=== PATIENT | male | born 1950 | race Caucasian/White ===

== ENCOUNTER → 2019-05-02 14:42 | Outpatient (CLI) | payer MEDICARE, SELFPAY ==
--- NOTE | 2019-05-02 14:48 | CT_ITS ---
STUDY: CT ABDOMEN AND PELVIS WITH AND WITHOUT CONTRAST REASON FOR EXAM: Male, 68 years old. Microhematuria. Recent painful urination. RADIATION DOSAGE (If Supplied By Facility): CTDIvol = ( 17.01 ) mGy, DLP = ( 1539.39 ) mGycm TECHNIQUE: Transaxial images were obtained from the dome of the diaphragm to the symphysis pubis without oral contrast. 100ML IV Isovue 300 was administered. Sagittal and coronal images were reconstructed. Individualized dose optimization techniques were used for this CT. COMPARISON: None. FINDINGS: The visualized lung bases are unremarkable. Normal heart size. There is atherosclerotic calcification in the right coronary artery. There is decreased attenuation of the liver consistent with steatosis. Right lobe of the is 18.6 mm in height. The patent portal vein diameter is 14 mm. Normal gallbladder and extrahepatic biliary system. The common bile duct diameter which is 6.7 mm. Normal spleen. Normal pancreas. Normal bilateral adrenal glands. Normal right kidney. Normal left kidney. No hydronephrosis. Normal visualized stomach. Normal small intestine. Normal colon. The appendix is visualized and appears normal. There is mild to moderate atherosclerotic calcification of the abdominal aorta and proximal iliac arteries, without a demonstrated aneurysm. Normal inferior vena cava. Normal retroperitoneum. There is fairly uniform 5 mm mural thickening of the incompletely distended urinary bladder. Normal visualized prostate gland. Normal abdominal wall. There are degenerative changes with anterior endplate spondylosis in the lower thoracic and lower lumbar spine. Mild to moderate anterior wedging of the T11 vertebra. Degenerative bony bridging noted across the anterior sacroiliac joints. CT/CT Abd/Pelvis W/WO Contrast IMPRESSION: 1. Mild uniform thickening of the urinary bladder wall, which could reflect hypertrophy due to a degree of outflow obstruction versus change of chronic cystitis. Evaluation limited by incomplete distention, but there is no surrounding inflammatory change to suggest acute cystitis. No hydronephrosis. 2. Hepatic steatosis with borderline to mild hepatomegaly. 3. Atherosclerotic vascular calcifications. No demonstrated aortic aneurysm. 4. Mild to moderate anterior wedging of the T11 vertebra, age uncertain. Degenerative changes also noted in the spine and sacroiliac joints. Electronically Signed: Ethan Champion MD at 16:24 EDT , Service support ,
[2019-05-02 15:06] LABS: EGFR FINGERSTICK > 60.0000 mL/min (>60)
== END ==
DX: R31.29 Other microscopic hematuria (principal)
CPT/HCPCS: 74178; Q9967

== ENCOUNTER 2019-10-24 19:29 | Observation (INO) | payer MEDICARE, SELFPAY ==
[2019-10-24 19:29] VITALS: BP 125/75; PULSE 60; RESP 18; TEMP 36.3; O2SAT 95; BMI 25.1
--- NOTE | 2019-10-24 19:33 | ED.RN ---
CALLED FOR EKG PER RN REQUEST, NO OLD EKGS IN MUSE
--- NOTE | 2019-10-24 19:37 | EKG12_ITS ---
Test Reason : SYNCOPE Blood Pressure : / mmHG Vent. Rate : 062 BPM Atrial Rate : 062 BPM P-R Int : 184 ms QRS Dur : 080 ms QT Int : 404 ms P-R-T Axes : 074 -19 057 degrees QTc Int : 410 ms Normal sinus rhythm Normal ECG Confirmed by TAMEKA GARCÍA ([id number]), fan mail editor NENA DIAS ([id number]) on 10/26/2019 8:32:52 AM Referred By: DANTE Confirmed By:TAMEKA GARCÍA
[2019-10-24 19:54] VITALS: BP 118/79; PULSE 63; RESP 16; O2SAT 97
[2019-10-24] MEDS: 0.9% Normal Saline 1,000 ML 150 ML IV (20:00)
[2019-10-24 20:25] LABS: Bedside Glucose 146 mg/dL (70-110)
--- NOTE | 2019-10-24 20:32 | RAD_ITS ---
STUDY: X-RAY CHEST REASON FOR EXAM: Male, 69 years old. SYNCOPE TECHNIQUE: Single frontal view of the chest. COMPARISON: 10/17/2014. FINDINGS: Cardiac silhouette unremarkable. Pulmonary vascularity unremarkable. Aorta unremarkable. No focal airspace opacities. No pleural effusions. Upper abdomen unremarkable. Osseous structures intact. No pneumothorax. RAD/Chest 1 View (Portable) IMPRESSION: No acute cardiopulmonary findings Electronically Signed: Trey Angulo, at 21:40 EST Tel , Service support ,
[2019-10-24 20:41] LABS: Absolute Lymphocyte Count 1.19 X10^3/uL (0.83-4.51); Absolute Neutrophil Count 8.5 X10^3/uL (2.0-7.7); Basophil# 0.09 X10^3/uL; Basophil% 0.8 % (0-1); Eosinophil# 0.05 X10^3/uL; Eosinophils% 0.5 % (0-5); Hematocrit 45.3 % (40-54); Lymphocyte # 1.19 X10^3/ul (4.0); Lymphocyte % 10.9 % (19-41); Mean Corp Hgb Conc 33.1 g/dL (32-36); Mean Corpuscular Hgb 33.4 pg (27.0-32.0); Mean Corpuscular Volume 100.9 fL (80-94); Mean Platelet Vol. 9.2 fl (6.2-12.0); Monocyte# 1.04 X10^3/uL; Monocyte% 9.5 % (0-10); NRBC Flagged by Analyzer 0 % (0-5); Neutrophil # 8.52 X10^3/uL (2.7-7.7); Neutrophil % 77.8 % (47-70); Platelet Count 244 K/mm3 (150-450); RBC Distribution Width SD 52.6 fl (35.1-43.9); Red Blood Count 4.49 M/mm3 (4.6-6.2)
[2019-10-24 20:59] LABS: Anion Gap 5 (5-15); BUN 12 mg/dL (7-18); BUN/Creat Ratio 11.3 RATIO (10-20); Calcium,Total 8.7 mg/dL (8.5-10.1); Chloride 105 mmol/L (98-107); Creatinine, Serum 1.06 mg/dL (0.70-1.30); EST Glomerular Filtration Rate 74 mL/min (>60); Est Glom Filt Rate - Afr Amer 89 mL/min (>60); Estimated Creatinine Clearance 65.77 ml/min; Glucose 137 mg/dL (74-106); Sodium Level 139 mmol/L (136-145)
--- NOTE | 2019-10-24 22:17 | HP.PCM_ITS ---
Problem List (1) Syncope Status: Acute History of Present Illness Date of Admission: 10/24/19 Chief Complaint: SYNCOPE The patient is a 69 year old M with a significant history of cardiac arrest while in [place] status post stent Tobacco abuse and COPD who presented to the emergency department with a syncopal episode. Patient was at a restaurant. While drinking his second bottle of beer he began to shakes and twitches. He almost fell but was held to the floor by people. He lost consciousness. He reports episodes of presyncope and dizziness while on Symbicort for which reason he stopped Symbicort. Past Medical History Medical History: Medical History (Last Updated 10/25/19 @ 00:43 by Maxim Mahan MD) Hypothyroidism E03.9 Hypertension I10 Allergies BEE STINGS Allergy (Unknown, Uncoded 10/19/14 13:37) Hives Home Medications: Ambulatory Orders Medication Instructions Recorded Aspirin [Aspirin, Baby] 81 mg PO DAILY@0800 10/19/14 Levothyroxine [Synthroid] 88 mcg PO DAILY 10/19/14 Lisinopril/Hydrochlorothiazide 1 tablet PO DAILY 10/19/14 [Zestoretic 20/12.5 Tablet] Metoprolol(XL)Succ [Toprol Xl 25 mg PO DAILY 10/19/14 (Beta Jairon)] Surgical History: - - Coronary stents Lives: Spouse/ Significant Other Smoking Status: Current every day smoker Tobacco Use: Cigarettes Alcohol: Heavy - *Family History Maternal History Items: - - Denies any maternal medical history Paternal History Items: Heart Disease Review of Systems Constitutional: Denies: Chills, Fever, Weight Change HEENT: Denies: Head Aches, Sinus Congestion, Sinus Drainage Cardiovascular: Reports: Syncope. Denies: Chest Pain, Palpitations Respiratory: Denies: Cough, Shortness of breath at rest, Sputum production Gastrointestinal: Denies: Abdominal Pain, Nausea, Vomiting Genitourinary: Denies: Dysuria Musculoskeletal: Denies: Joint Pain, Joint Tenderness Skin: Denies: Rash, Wounds Neurological: Denies: Numbness, Tingling, Focal weakness Psychiatric: Denies: Anxiety, Depression, Homicidal Ideations, Suicidal Ideations Hematologic/ Lymphatic: Denies: Easy Bruising, Easy Bleeding VTE Information - Inpt Only VTE Present on Admission: No VTE Mechan Device Prophylaxis: None VTE Pharm Prophylaxis ordered?: Yes Patient Problems: Active and Suspected Problems (Last Updated 10/25/19 @ 00:43 by Maxim Mahan MD) Syncope (Acute) - Physical Exam Vitals/I&O's: Vital Signs Temp Pulse Resp BP Pulse Ox 97.4 F L 63 16 118/79 97 10/24/19 19:29 10/24/19 19:54 10/24/19 19:54 10/24/19 19:54 10/24/19 19:54 Oxygen Delivery Method Room Air Weight: 77.1 kg Body Mass Index (BMI) 25.1 Finger Stick Blood Glucose 146 General: Alert, Oriented x3, Cooperative HEENT: Atraumatic, PERRLA, EOMI, Normocephalic Neck: Supple, No JVD, Negative Carotid Bruits Lungs: No rales, Wheezes Cardiovascular: Regular rate, Normal S1, Normal S2, No murmurs Abdomen: Bowel Sounds Present, Soft, Non Tender Extremities: No edema, Capillary Refill Less than 3 Seconds Skin: No rashes, No breakdown Musculoskeletal: No Tenderness to Palpation of Joints or Extremities Neurological: Cranial nerves II-XII grossly intact Psych/Mental Status: Normal Affect, Appropriate Laboratory Results 10/24/19 20:21: POC Glucose 146 H 10/24/19 20:34: WBC 11.0, RBC 4.49 L, Hgb 15.0, Hct 45.3, MCV 100.9 H, MCH 33.4 H, MCHC 33.1, RDW Std Deviation 52.6 H, RDW Coeff of Zarina 14.0, Plt Count 244, MPV 9.2, Immature Gran % (Auto) 0.500, Neut % (Auto) 77.8 H, Lymph % (Auto) 10.9 L, Atlantic % (Auto) 9.5, Eos % (Auto) 0.5, Baso % (Auto) 0.8, Absolute Neuts (auto) 8.5 H, Absolute Lymphs (auto) 1.19, Nucleated RBC % 0 10/24/19 20:34: Sodium 139, Potassium 4.0, Chloride 105, Carbon Dioxide 29.0, Anion Gap 5, BUN 12, Creatinine 1.06, Estim Creat Clear Calc 65.77, Est GFR (MDRD) Af Amer 89, Est GFR (MDRD) Non-Af 74, BUN/Creatinine Ratio 11.3, Glucose 137 H, Calcium 8.7, Troponin I < 0.015 10/24/19 22:10: Ethyl Alcohol Pending Current Medications Sodium Chloride () 1,000 mls @ 150 mls/hr IV .[id number] [facility] Last Admin: 10/24/19 20:00 Dose: 150 mls/hr Documented by: Assessment/Plan All Active Problems (Last Updated 10/25/19 @ 00:43 by Maxim Mahan MD) Syncope (Acute) The patient is a 69 year old M with a significant history of cardiac arrest while in [place] status post stent Tobacco abuse and COPD who presented to the emergency department with a syncopal episode. Syncope Etiology unclear at this time. EKG is unremarkable. Will check orthostatic blood pressures. Started on IV fluids in the emergency department. Continue patient on IV fluids. We will get an echocardiogram and an EEG. We will get a prolactin level. Tobacco abuse Counseled COPD With some mild wheezes. Because of his history of presyncope and dizziness with Symbicort would hold off inhalers at this time. Alcohol abuse Patient drinks 3-4 beers per day. Will put on CIWA protocol with multivitamin; thiamine and Ativan as needed. Counselled Hypertension On presentation blood pressure was not within goal. Lisinopril and hydrochlorothiazide continued. Metoprolol continued. Trend blood pressure and adjust blood pressure medications if necessary. DVT prophylaxis Subcutaneous Lovenox. Code Visit OBSV E&M: 19932 Initial observation care L3
--- NOTE | 2019-10-24 22:21 | ED.VISSUMM ---
- ER Visit Summary Date of Service: 10/24/19 Chief Complaint: [Syncope History of Present Illness: The patient is a 69 M [presents to the emergency department with a syncopal episode this evening. Patient was with his at a bar. He had one beer to drink. Patient went to smoke and sip on a second beer when he started shaking and started to fall so his friends apparently caught him. Patient was unconscious. He continued to twitch for a couple of minutes. On arrival to the emergency department patient has no recollection of the event. He has no seizure history. He denies headache. He has had multiple other syncopal episodes in the past. Patient did have a cardiac arrest 4 years ago while he was in [place] and they put 2 stents in his heart that he states was preventative. He does not have a pacer or defibrillator. Patient did not bite his tongue or mouth. He did not lose control of bowel or bladder. Patient has history of COPD, hypertension, coronary artery disease, hypothyroidism, and history of cardiac arrest.] Physical Examination: [HEENT-PERRLA, EOMI. Cranial nerves II through XII grossly intact. TMs clear. Mucous membranes moist. No adenopathy. No C-spine tenderness on palpation. No external evidence of trauma to his head. Cardiovascular-regular rate and rhythm without murmur or ectopy Lungs-clear to auscultation, chest wall stable without crepitus or subcu emphysema Abdomen-normoactive bowel sounds, soft, nontender, no rebound or rigidity, no peritoneal signs. Neuro [id number]-nose and heel lim testing within normal limits, negative Romberg, negative , Fundi benign Extremities-intact ?4, normal range of motion, normal pulses, atraumatic] Test Results: [EKG obtained arrival shows sinus rhythm with a ventricular rate of 62 bpm with no acute ST segment changes. CBC with differential was normal. Chemistries unremarkable. Troponin was less than 0.015.] Chest x-ray showed nothing acute. Emergency Department Course and Treatment: [Patient had nebulized damage and was given normal saline. Alcohol level was ordered and pending.] Treatment Plan: [Admit as etiology of syncope unclear. My suspicion is that patient did not have a seizure episode but rather was twitching related to the suspected loss or lowering of the blood pressure as family states that he was quite diaphoretic.] Disposition: [Admit] Impression: [Syncope-etiology uncertain] This note was generated with [employer] dictation software. It may contain incorrect words, spelling, and punctuation that were not noted in review of the chart prior to signing ED Disposition - Plan for ED Patient: Referrals: Danish Mason MD [Primary Care Provider] -
[2019-10-24 22:32] VITALS: BP 131/90; PULSE 62; RESP 24; O2SAT 98
[2019-10-24 22:33] VITALS: BP 131/90; PULSE 73; RESP 16; O2SAT 98
[2019-10-24 22:44] LABS: Alcohol, Blood (Medical)-Serum < 3.0 mg/dL
[2019-10-24 22:55] VITALS: BP 119/77; BP 119/79; BP 134/78; PULSE 57; PULSE 60; PULSE 67
[2019-10-24 23:42] VITALS: BMI 23.8
[2019-10-24 23:50] VITALS: BMI 23.8
[2019-10-24 23:52] VITALS: PULSE 60
[2019-10-25] VITALS (13 sets, daily range): BP systolic 115–133; BP diastolic 51–85; PULSE 54–66; RESP 14–18; TEMP 36.7–36.9; O2SAT 95–97
[2019-10-25] MEDS: 0.9% Normal Saline 1,000 ML 100 ML IV ×2 (00:06→09:40)
[2019-10-25 00:13] LABS: Prolactin 12.8 ng/mL
[2019-10-25 02:49] LABS: Absolute Lymphocyte Count 1.87 X10^3/uL (0.83-4.51); Absolute Neutrophil Count 5.7 X10^3/uL (2.0-7.7); Basophil% 1.2 % (0-1); Eosinophils% 1.2 % (0-5); Hematocrit 40.8 % (40-54); Hemoglobin 13.8 g/dL (13.0-16.5); Lymphocyte # 1.87 X10^3/ul (4.0); Lymphocyte % 21.6 % (19-41); Mean Corp Hgb Conc 33.8 g/dL (32-36); Mean Corpuscular Hgb 33.6 pg (27.0-32.0); Mean Corpuscular Volume 99.3 fL (80-94); Mean Platelet Vol. 9.2 fl (6.2-12.0); Monocyte# 0.87 X10^3/uL; NRBC Flagged by Analyzer 0 % (0-5); Neutrophil % 65.7 % (47-70); Platelet Count 225 K/mm3 (150-450); RBC Distribution Width SD 51.4 fl (35.1-43.9); Red Blood Count 4.11 M/mm3 (4.6-6.2); White Blood Count 8.7 K/mm3 (4.4-11.0)
[2019-10-25 03:07] LABS: Anion Gap 5 (5-15); BUN 11 mg/dL (7-18); BUN/Creat Ratio 12.6 RATIO (10-20); Calcium,Total 8.4 mg/dL (8.5-10.1); Chloride 107 mmol/L (98-107); Creatinine, Serum 0.88 mg/dL (0.70-1.30); EST Glomerular Filtration Rate 92 mL/min (>60); Est Glom Filt Rate - Afr Amer 111 mL/min (>60); Estimated Creatinine Clearance 79.23 ml/min; Glucose 103 mg/dL (74-106); Potassium 4.2 mmol/L (3.5-5.1); Sodium Level 139 mmol/L (136-145)
[2019-10-25] MEDS: Levothyroxine 88 MCG Tablet PO (05:07)
--- NOTE | 2019-10-25 05:55 | ECHOCS_ITS ---
Reason For Study: SYNCOPE Procedure This was a 2D Doppler, Color Flow transthoracic echocardiogram. Contrast injection was performed. The study was technically difficult. Exam performed portable in patient room. Left Ventricle Normal size and thickness. The estimated ejection fraction is 65 %. Stage 1 diastolic dysfunction. No regional wall motion abnormalities noted. Right Ventricle Normal size and thickness. Normal systolic function. Atria Normal left atrium. Normal right atrium. Normal atrial septum. Mitral Valve The mitral valve is structurally normal. No prolapse or stenosis seen. Trivial mitral valve insufficiency. Tricuspid Valve Normal tricuspid valve. Trivial tricuspid valve insufficiency. Right ventricular systolic pressure estimated to be 18 mmHg. Aortic Valve Normal aortic valve. Trisinus/trileaflet aortic valve. Pulmonic Valve Normal pulmonic valve. Great Vessels Normal aortic root. Normal arch. Normal inferior vena cava. Inferior vena cava collapse with sniff. Pericardium/Pleural No pericardial effusion. Medication Diluted definity 6.0ml given slow IV push to enhance endocardial definition. MMode/2D Measurements & Calculations LVIDd: 5.0 cm IVSd: 0.83 cm Ao root diam: 3.9 cm LVIDs: 4.0 cm LVPWd: 0.85 cm RVDd: 3.3 cm FS: 20.9 % LAV(MOD-bp): 41.4 ml LVAd ap4: 31.4 cm2 SV(MOD-sp4): 53.9 ml LAV(MOD-bp) Indexed: 22.0 ml/m2 EDV(MOD-sp4): 100.4 ml LAV(MOD-sp2): 65.4 ml EDV(sp4-el): 101.4 ml LAV(MOD-sp4): 26.6 ml LVAs ap4: 20.0 cm2 ESV(MOD-sp4): 46.5 ml ESV(sp4-el): 46.7 ml EF(MOD-sp4): 53.7 % EF(sp4-el): 53.9 % SV(sp4-el): 54.7 ml LA A4 area: 14.0 cm2 LA dimension(2D): 3.8 cm RA A4 area: 13.3 cm2 Time Measurements MV dec time: 0.27 sec Doppler Measurements & Calculations MV E max mack: 57.4 cm/sec Lat Peak E' Mack: 10.6 cm/sec Med Peak E' Mack: 6.8 cm/sec MV A max mack: 71.0 cm/sec E/E' lat: 5.4 E/E' med: 8.4 MV E/A: 0.81 Ao V2 max: 113.5 cm/sec LV V1 max: 83.2 cm/sec PA V2 max: 102.0 cm/sec Ao max P.2 mmHg LV V1 max P.8 mmHg TR max mack: 179.6 cm/sec TR max P.9 mmHg Interpretation Summary The estimated ejection fraction is 65 %. Stage 1 diastolic dysfunction. Trivial mitral valve insufficiency. Trivial tricuspid valve insufficiency. Right ventricular systolic pressure estimated to be 18 mmHg. There is no comparison study available. The study was technically difficult. Contrast injection was performed. Ordering Physician: Martin^^^ Referring Physician: PATRICIA ARRIAGA Performed By: Doreen Ceballos, RDCS, RVT
[2019-10-25] MEDS: Multivitamins,Ther W-Minerals Tablet 1 TABLET PO (09:41)
[2019-10-25] MEDS: Thiamine Hydrochloride 100 MG Tablet PO ×2 (09:41→17:37)
[2019-10-25] MEDS: Folic Acid 1 MG Tablet PO (09:41)
[2019-10-25] MEDS: Aspirin 81 MG TAB.CHEW PO (09:42)
[2019-10-25] MEDS: Metoprolol(XL)Succ 25 MG Tablet PO (09:42)
[2019-10-25] MEDS: Lisinopril 20 MG Tablet PO (09:42)
[2019-10-25] MEDS: hydroCHLOROthiazide 12.5mg 12.5 MG PO (09:42)
[2019-10-25] MEDS: Enoxaparin 40 MG/0.4 ML Syringe SC (09:45)
--- NOTE | 2019-10-25 10:20 | MRI_ITS ---
STUDY: MRI BRAIN WITH AND WITHOUT CONTRAST REASON FOR EXAM: Male, 69 years old. dizziness, syncope episode TECHNIQUE: Standardized multiplanar fat and water weighted pulse sequences were obtained. IV dotarem 15cc was administered for the contrast portion of the examination. COMPARISON: None. FINDINGS: There is mild cerebral atrophy with widening of the extra-axial spaces and ventricular dilatation. There are multiple white matter hyperintensities, distributed throughout the deep white matter tracts of the cerebral hemispheres, consistent with mild chronic white matter ischemic changes. Normal bilateral basal ganglia. Normal thalami. There is no extra-axial fluid accumulation. Normal flow voids within the major intracranial circulation suggesting patency by spin echo criteria. Normal venous enhancement. There is no enhancing intra-axial or extra-axial abnormality. Normal sella turcica, pituitary gland, infundibular stalk, optic chiasm and hypothalamus. Normal tectal plate and pineal gland. Normal midbrain, colin and medulla. Normal cerebellum. Normal basal cisterns. Normal bilateral temporal bones. MRI/Brain W/WO Contrast IMPRESSION: No acute intracranial abnormality or masses. Electronically Signed: Rosanna Galvan MD at 13:44 EST Tel , Service support ,
--- NOTE | 2019-10-25 10:21 | CDU_ITS ---
Reason For Study: Syncope Rt. Velocities/BP Lt. Velocities/BP Prox CCA 64/17 cm/sec. Prox CCA 59/16 cm/sec. Mid CCA 82/22 cm/sec. Mid CCA 61/15 cm/sec. Dist CCA 67/18 cm/sec. Dist CCA 63/20 cm/sec. Prox ICA 81/20 cm/sec. Prox ICA 144/40 cm/sec. Mid ICA 74/23 cm/sec. Mid ICA 81/21 cm/sec. Dist ICA 72/27 cm/sec. Dist ICA 55/17 cm/sec. Rt. ICA/CCA = 1.0. Lt. ICA/CCA = 2.36. Prox ECA 92/16 cm/sec. Prox ECA 173/19 cm/sec. Rt. Vert. 29/5 cm/sec. Lt. Vert. 38/13 cm/sec. Right Extracranial There is heterogeneous, irregular atherosclerotic plaque noted in the right common carotid artery. There is heterogeneous, irregular atherosclerotic plaque noted in the right internal carotid artery. There is heterogeneous, irregular atherosclerotic plaque noted in the right external carotid artery. Antegrade flow is noted in the right vertebral artery. Left Extracranial There is heterogeneous, irregular atherosclerotic plaque noted in the left common carotid artery. There is heterogeneous, irregular atherosclerotic plaque noted in the left internal carotid artery. There is heterogeneous, irregular atherosclerotic plaque noted in the left external carotid artery. Antegrade flow is noted in the left vertebral artery. Procedure Carotid Duplex [id number]. Exam performed portable in patient room. Interpretation Summary Irregular calcific plaque at the proximal right internal carotid with less than 50% stenosis <50% stenosis right external carotid Irregular calcific plaque with shadowing at the proximal left internal carotid with 50 to 69% stenosis <50% stenosis left external carotid Patent, antegrade, <50% stenosis bilateral vertebrals Ordering Physician: Kaylah Hawley Referring Physician: Danish Mason Performed By: Shannan Corona, NEGRO, RVT
--- NOTE | 2019-10-25 12:54 | PCM.PROGNOTE ---
<Kaylah Hawley - Last Filed: 10/25/19 13:07> Patient Problems: Active and Suspected Problems (Last Updated 10/25/19 @ 00:43 by Maxim Mahan MD) Syncope (Acute) Subjective: Patient seen and examined. Denies further dizziness, lightheadedness. Patient reports approximately 1 month ago he had dizziness causing him to lose his balance and have multiple falls at home. This has since resolved. Plan for echo, MRI. - Physical Exam Vitals/I&O's: Vital Signs Temp Pulse Resp BP Pulse Ox 98.4 F 58 L 14 131/85 H 96 10/25/19 09:37 10/25/19 12:42 10/25/19 09:37 10/25/19 09:42 10/25/19 09:37 Oxygen Delivery Method Room Air Weight: 160 lb 14.999 oz Body Mass Index (BMI) 23.8 Finger Stick Blood Glucose 146 Orthostatic Vital Signs Start: 10/25/19 00:22 Freq: q24h Status: Active Protocol: Activity Type Activity Date Activity User E-Sign Co-Sign Detail Recorded Client Recorded Date Recorded By Document 10/25/19 00:22 BLB [id number] 10/25/19 00:22 BLB 10/25/19 00:22 Orthostatic Vitals Standing -Blood Pressure (90/60-120/80) 120/80 -Extremity Use Left Arm -Pulse Rate (60-100) 64 Sitting -Blood Pressure (90/60-120/80) 127/80 H -Extremity Use Left Arm -Pulse Rate (60-100) 61 Lying -Blood Pressure (90/60-120/80) 128/77 H -Extremity Use Left Arm -Pulse Rate (60-100) 60 Intake and Output for Last 24 Hours 10/23/19 10/24/19 10/25/19 23:59 23:59 23:59 Intake Total 567.5 / 567.5 1619.99 / 1619.99 Balance 567.5 / 567.5 1619.99 / 1619.99 General: Alert, Oriented x3, Cooperative HEENT: Atraumatic, PERRLA, EOMI, Normocephalic Neck: Supple, No JVD, Negative Carotid Bruits Lungs: Clear to auscultation, Normal air movement Cardiovascular: Regular rate, Regular Rhythm, Normal S1, Normal S2, No murmurs Abdomen: Bowel Sounds Present, Soft, Non Tender, Non-Distended Extremities: No clubbing, No cyanosis, No edema, Capillary Refill Less than 3 Seconds Skin: No rashes, No breakdown Musculoskeletal: No Tenderness to Palpation of Joints or Extremities Neurological: Cranial nerves II-XII grossly intact, Neuro grossly intact Psych/Mental Status: Normal Affect, Appropriate Laboratory Results 10/24/19 20:21: POC Glucose 146 H 10/24/19 20:34: WBC 11.0, RBC 4.49 L, Hgb 15.0, Hct 45.3, MCV 100.9 H, MCH 33.4 H, MCHC 33.1, RDW Std Deviation 52.6 H, RDW Coeff of Zarina 14.0, Plt Count 244, MPV 9.2, Immature Gran % (Auto) 0.500, Neut % (Auto) 77.8 H, Lymph % (Auto) 10.9 L, Apache % (Auto) 9.5, Eos % (Auto) 0.5, Baso % (Auto) 0.8, Absolute Neuts (auto) 8.5 H, Absolute Lymphs (auto) 1.19, Nucleated RBC % 0 10/24/19 20:34: Sodium 139, Potassium 4.0, Chloride 105, Carbon Dioxide 29.0, Anion Gap 5, BUN 12, Creatinine 1.06, Estim Creat Clear Calc 65.77, Est GFR (MDRD) Af Amer 89, Est GFR (MDRD) Non-Af 74, BUN/Creatinine Ratio 11.3, Glucose 137 H, Calcium 8.7, Troponin I < 0.015 10/24/19 20:34: Prolactin 12.8 10/24/19 22:10: Ethyl Alcohol < 3.0 10/24/19 23:54: Troponin I < 0.015 10/25/19 02:40: WBC 8.7, RBC 4.11 L, Hgb 13.8, Hct 40.8, MCV 99.3 H, MCH 33.6 H, MCHC 33.8, RDW Std Deviation 51.4 H, RDW Coeff of Zarina 14.0, Plt Count 225, MPV 9.2, Immature Gran % (Auto) 0.300, Neut % (Auto) 65.7, Lymph % (Auto) 21.6, Apache % (Auto) 10.0, Eos % (Auto) 1.2, Baso % (Auto) 1.2 H, Absolute Neuts (auto) 5.7, Absolute Lymphs (auto) 1.87, Nucleated RBC % 0 10/25/19 02:40: Sodium 139, Potassium 4.2, Chloride 107, Carbon Dioxide 27.0, Anion Gap 5, BUN 11, Creatinine 0.88, Estim Creat Clear Calc 79.23, Est GFR (MDRD) Af Amer 111, Est GFR (MDRD) Non-Af 92, BUN/Creatinine Ratio 12.6, Glucose 103, Calcium 8.4 L, Troponin I < 0.015 Current Medications Al Hydroxide/Mg Hydroxide (Mylanta Ii) 30 ml PO Q6H PRN PRN PRN Reason: Gastric Burning Aspirin (Aspirin, Baby) 81 mg PO DAILY@0800 [facility] Last Admin: 10/25/19 09:42 Dose: 81 mg Documented by: Enoxaparin Sodium (Lovenox) 40 mg SC DAILY [facility] Last Admin: 10/25/19 09:45 Dose: 40 mg Documented by: Folic Acid (Folic Acid) 1 mg PO DAILY@0800 [facility] Stop: 10/27/19 08:01 Last Admin: 10/25/19 09:41 Dose: 1 mg Documented by: Glucagon () 1 mg IM .X1 PRN PRN Reason: Hypoglycemia Hydrochlorothiazide () 12.5 mg PO DAILY [facility] Last Admin: 10/25/19 09:42 Dose: 12.5 mg Documented by: Sodium Chloride () 1,000 mls @ 100 mls/hr IV .Q10H [facility] Stop: 10/25/19 19:35 Last Infusion: 10/25/19 11:30 Dose: 0 mls/hr Documented by: Dextrose (Dextrose 10%-Water) 250 mls @ 999 mls/hr IV .Q16M PRN; Protocol PRN Reason: HYPOGLYCEMIA Sodium Chloride () 250 mls @ 15 mls/hr IV .[id number] PRN PRN Reason: Saline Flush Sodium Chloride () 250 mls @ 15 mls/hr IV .[id number] PRN PRN Reason: Additional IVPB Infusion Levothyroxine Sodium (Synthroid) 88 mcg PO DAILY@0600 [facility] Last Admin: 10/25/19 05:07 Dose: 88 mcg Documented by: Lisinopril (Zestril) 20 mg PO DAILY [facility] Last Admin: 10/25/19 09:42 Dose: 20 mg Documented by: Lorazepam (Ativan) 2 mg PO Q2H PRN PRN; Protocol PRN Reason: CIWA score > 8 but <15 Lorazepam (Ativan) 2 mg PO UD PRN; Protocol PRN Reason: CIWA score >/=15. Lorazepam (Ativan) 2 mg IV Q2H PRN PRN; Protocol PRN Reason: CIWA score > 8 but <15 Lorazepam (Ativan) 2 mg IV UD PRN; Protocol PRN Reason: CIWA score >/=15. Melatonin (Melatonin) 3 mg PO QHS PRN PRN PRN Reason: INSOMNIA Metoprolol Succinate (Toprol Xl (Beta Jairon)) 25 mg PO DAILY [facility] Last Admin: 10/25/19 09:42 Dose: 25 mg Documented by: Multivitamins/Minerals ([facility]) [facility] Last Admin: 10/25/19 09:41 Dose: 1 tablet Documented by: Nicotine (Nicoderm Cq (Pbkc)) 21 mg TRANSDERM. DAILY [facility] Last Admin: 10/25/19 09:44 Dose: Not Given Documented by: Nutritional Formula (Lactose Free) (Ensure Enlive) 120 ml PO 4X/DAY [facility] Last Admin: 10/25/19 09:45 Dose: Not Given Documented by: Ondansetron HCl (Zofran) 4 mg IV Q8H PRN PRN PRN Reason: NAUSEA/VOMITING Sodium Chloride () 10 - 40 ml IV UD PRN PRN Reason: SALINE FLUSH Thiamine HCl (Vitamin B1) [facility] Stop: 10/27/19 17:01 Last Admin: 10/25/19 09:41 Dose: 100 mg Documented by: Medical Necessity - Tobacco Use Smoking Status: Current every day smoker Tobacco Use: Cigarettes Assessment/Plan All Active Problems (Last Updated 10/25/19 @ 00:43 by Maxim Mahan MD) Syncope (Acute) 1. Syncope-unclear etiology. Troponin negative. Orthostatic vitals negative. Carotid ultrasound ordered. EEG pending, completed due to reported shaking prior to syncope. Patient reports sudden onset dizziness prior to syncope as well. He also reports approximately 1 month ago he had intermittent dizziness leading to unsteady gait and multiple falls at home. At the time he attributed to a new inhaler he was placed on. Obtain MRI of brain. Aspirin, statin, NIH, PT/OT/ST pending MRI results. Check TSH, mag. 2. Alcohol dependence-patient reports heavy alcohol use. CIWA protocol. Continue multivitamin, thiamine and PRN Ativan. 3. Tobacco dependence-encourage cessation. 4. Mild CAD/history of cardiac arrest-patient reports this is approximately 4 years ago. The etiology was unknown. Continue aspirin, beta-jairon. Heart cath per records in 2014 demonstrated mild CAD. 5. Hypothyroidism-continue Synthroid regimen. Check TSH. 6. Chronic COPD-no acute exacerbation. 7. Hypertension-stable, continue lisinopril, HCTZ, metoprolol regimen. DVT prophylaxis- Lovenox sc This patient was seen by AINSLEY Díaz under the supervision of Dr. Cueva. <Cherelle Cueva E - Last Filed: 10/25/19 13:19> - Physical Exam Vitals/I&O's: Vital Signs Temp Pulse Resp BP Pulse Ox 98.4 F 58 L 14 131/85 H 96 10/25/19 09:37 10/25/19 12:42 10/25/19 09:37 10/25/19 09:42 10/25/19 09:37 Oxygen Delivery Method Room Air Weight: 160 lb 14.999 oz Body Mass Index (BMI) 23.8 Finger Stick Blood Glucose 146 Orthostatic Vital Signs Start: 10/25/19 00:22 Freq: q24h Status: Active Protocol: Activity Type Activity Date Activity User E-Sign Co-Sign Detail Recorded Client Recorded Date Recorded By Document 10/25/19 00:22 [facility] [id number] 10/25/19 00:22 BLB 10/25/19 00:22 Orthostatic Vitals Standing -Blood Pressure (90/60-120/80) 120/80 -Extremity Use Left Arm -Pulse Rate (60-100) 64 Sitting -Blood Pressure (90/60-120/80) 127/80 H -Extremity Use Left Arm -Pulse Rate (60-100) 61 Lying -Blood Pressure (90/60-120/80) 128/77 H -Extremity Use Left Arm -Pulse Rate (60-100) 60 Intake and Output for Last 24 Hours 10/23/19 10/24/19 10/25/19 23:59 23:59 23:59 Intake Total 567.5 / 567.5 1619.99 / 1619.99 Balance 567.5 / 567.5 1619.99 / 1619.99 Laboratory Results 10/24/19 20:21: POC Glucose 146 H 10/24/19 20:34: WBC 11.0, RBC 4.49 L, Hgb 15.0, Hct 45.3, MCV 100.9 H, MCH 33.4 H, MCHC 33.1, RDW Std Deviation 52.6 H, RDW Coeff of Zarina 14.0, Plt Count 244, MPV 9.2, Immature Gran % (Auto) 0.500, Neut % (Auto) 77.8 H, Lymph % (Auto) 10.9 L, Apache % (Auto) 9.5, Eos % (Auto) 0.5, Baso % (Auto) 0.8, Absolute Neuts (auto) 8.5 H, Absolute Lymphs (auto) 1.19, Nucleated RBC % 0 10/24/19 20:34: Sodium 139, Potassium 4.0, Chloride 105, Carbon Dioxide 29.0, Anion Gap 5, BUN 12, Creatinine 1.06, Estim Creat Clear Calc 65.77, Est GFR (MDRD) Af Amer 89, Est GFR (MDRD) Non-Af 74, BUN/Creatinine Ratio 11.3, Glucose 137 H, Calcium 8.7, Troponin I < 0.015 10/24/19 20:34: Prolactin 12.8 10/24/19 22:10: Ethyl Alcohol < 3.0 10/24/19 23:54: Troponin I < 0.015 10/25/19 02:40: WBC 8.7, RBC 4.11 L, Hgb 13.8, Hct 40.8, MCV 99.3 H, MCH 33.6 H, MCHC 33.8, RDW Std Deviation 51.4 H, RDW Coeff of Zarina 14.0, Plt Count 225, MPV 9.2, Immature Gran % (Auto) 0.300, Neut % (Auto) 65.7, Lymph % (Auto) 21.6, Apache % (Auto) 10.0, Eos % (Auto) 1.2, Baso % (Auto) 1.2 H, Absolute Neuts (auto) 5.7, Absolute Lymphs (auto) 1.87, Nucleated RBC % 0 10/25/19 02:40: Sodium 139, Potassium 4.2, Chloride 107, Carbon Dioxide 27.0, Anion Gap 5, BUN 11, Creatinine 0.88, Estim Creat Clear Calc 79.23, Est GFR (MDRD) Af Amer 111, Est GFR (MDRD) Non-Af 92, BUN/Creatinine Ratio 12.6, Glucose 103, Calcium 8.4 L, Troponin I < 0.015 10/25/19 02:40: Magnesium Pending, TSH Pending Current Medications Al Hydroxide/Mg Hydroxide (Mylanta Ii) 30 ml PO Q6H PRN PRN PRN Reason: Gastric Burning Aspirin (Aspirin, Baby) 81 mg PO DAILY@0800 [facility] Last Admin: 10/25/19 09:42 Dose: 81 mg Documented by: Atorvastatin Calcium (Lipitor) 80 mg PO QHS [facility] Enoxaparin Sodium (Lovenox) 40 mg SC DAILY [facility] Last Admin: 10/25/19 09:45 Dose: 40 mg Documented by: Folic Acid (Folic Acid) 1 mg PO DAILY@0800 [facility] Stop: 10/27/19 08:01 Last Admin: 10/25/19 09:41 Dose: 1 mg Documented by: Glucagon () 1 mg IM .X1 PRN PRN Reason: Hypoglycemia Hydrochlorothiazide () 12.5 mg PO DAILY [facility] Last Admin: 10/25/19 09:42 Dose: 12.5 mg Documented by: Sodium Chloride () 1,000 mls @ 100 mls/hr IV .Q10H [facility] Stop: 10/25/19 19:35 Last Infusion: 10/25/19 11:30 Dose: 0 mls/hr Documented by: Dextrose (Dextrose 10%-Water) 250 mls @ 999 mls/hr IV .Q16M PRN; Protocol PRN Reason: HYPOGLYCEMIA Sodium Chloride () 250 mls @ 15 mls/hr IV .[id number] PRN PRN Reason: Saline Flush Sodium Chloride () 250 mls @ 15 mls/hr IV .[id number] PRN PRN Reason: Additional IVPB Infusion Levothyroxine Sodium (Synthroid) 88 mcg PO DAILY@0600 [facility] Last Admin: 10/25/19 05:07 Dose: 88 mcg Documented by: Lisinopril (Zestril) 20 mg PO DAILY [facility] Last Admin: 10/25/19 09:42 Dose: 20 mg Documented by: Lorazepam (Ativan) 2 mg PO Q2H PRN PRN; Protocol PRN Reason: CIWA score > 8 but <15 Lorazepam (Ativan) 2 mg PO UD PRN; Protocol PRN Reason: CIWA score >/=15. Lorazepam (Ativan) 2 mg IV Q2H PRN PRN; Protocol PRN Reason: CIWA score > 8 but <15 Lorazepam (Ativan) 2 mg IV UD PRN; Protocol PRN Reason: CIWA score >/=15. Melatonin (Melatonin) 3 mg PO QHS PRN PRN PRN Reason: INSOMNIA Metoprolol Succinate (Toprol Xl (Beta Jairon)) 25 mg PO DAILY [facility] Last Admin: 10/25/19 09:42 Dose: 25 mg Documented by: Multivitamins/Minerals ([facility]ivitamin With Minerals) [facility] Last Admin: 10/25/19 09:41 Dose: 1 tablet Documented by: Nicotine (Nicoderm Cq (Pbkc)) 21 mg TRANSDERM. DAILY [facility] Last Admin: 10/25/19 09:44 Dose: Not Given Documented by: Nutritional Formula (Lactose Free) (Ensure Enlive) 120 ml PO 4X/DAY [facility] Last Admin: 10/25/19 09:45 Dose: Not Given Documented by: Ondansetron HCl (Zofran) 4 mg IV Q8H PRN PRN PRN Reason: NAUSEA/VOMITING Sodium Chloride () 10 - 40 ml IV UD PRN PRN Reason: SALINE FLUSH Thiamine HCl (Vitamin B1) 100 mg PO BIDCM [facility] Stop: 10/27/19 17:01 Last Admin: 10/25/19 09:41 Dose: 100 mg Documented by: Assessment/Plan Hospitalist note: I am seeing this patient in conjunction with Kaylah Hawley. I independently seen and examined the patient. Progress note above, laboratory data and imaging studies reviewed and I concur with the above work-up plan. Patient mentioned that he sat on a stool yesterday at a bar, felt severely dizzy, lightheaded and sweaty and he passed out. Reportedly, he passed out for about 5 minutes. He denied any chest pain or shortness of breath preceding the syncopal episode. Today, he denied any symptoms. He had a history of cardiac arrest 4 years ago in [place] and that happened when he had car race. During that time, he was informed that he had 2 cardiac stents put in just for prophylaxis but there was no clear etiology why he had that cardiac arrest. At this time, his vital signs are stable. - Physical Exam General: Alert, Oriented x3, Cooperative, No apparent distress. HEENT: Atraumatic, PERRLA, EOMI. Neck: Supple, No JVD, Negative Carotid Bruits, Trachea Midline, Thyroid Normal. Lungs: Diminished breath sounds bilateral, otherwise clear, No rhonchi, No wheeze, No rales. Cardiovascular: Regular rate, Regular Rhythm, Normal S1, Normal S2, PMI Normal. Abdomen: Bowel Sounds Present, Soft, Non Tender, Non-Distended, No Hepato-splenomegaly. Extremities: No clubbing, No cyanosis, No edema Skin: No rashes, No breakdown Neurological: Cranial nerves are intact, neuro grossly intact Vital Signs are stable. Assessment and plan: #1 syncopal episode: Unclear etiology. It is not clear if this could be due to cardiogenic or neurogenic. EKG revealed no acute hemic changes. Troponin was negative. Orthostatic vitals were unremarkable. 2D echocardiogram and EEG done this morning and are pending. Routine blood work was unremarkable. Plan for MRI brain and carotid Doppler. #2 alcohol dependence: Patient reportedly has been drinking alcohol every day. He is on Ativan as needed, thiamine, folic acid and CIWA protocol. #3 CAD status post stents: EKG without acute ischemic changes, troponin is negative. Patient denied any chest pain. 2D echocardiogram done, awaiting the report. He is on aspirin, lisinopril and metoprolol. #4 other chronic medical problems: Stable, continue current medications as above. This note was generated with iovox dictation software. It may contain incorrect words, spelling, and punctuation that were not noted in checking the note before signing. Code Visit OBSV E&M: 50927 Subsequent observation care L2
[2019-10-25 13:31] LABS: Magnesium 2.2 mg/dL (1.6-2.6)
--- NOTE | 2019-10-25 15:30 | CASEMGMT ---
This RN CM to room with WYATT form at this time, explanation done-pt voices understanding, and pt signed WYATT form at this time. Original to chart and copy to pt at this time. Pt voices no further questions/concerns/needs at this time. SStaten SILVER CM
[2019-10-26 02:59] VITALS: PULSE 55
[2019-10-26 03:00] VITALS: BP 128/71; PULSE 58; RESP 14; TEMP 37; O2SAT 96
[2019-10-26] MEDS: Levothyroxine 88 MCG Tablet PO (06:32)
[2019-10-26 06:33] VITALS: BP 127/78; BP 128/80; BP 132/82; PULSE 56; PULSE 63; PULSE 71
[2019-10-26 07:10] VITALS: PULSE 53
[2019-10-26] MEDS: Multivitamins,Ther W-Minerals Tablet 1 TABLET PO (08:39)
[2019-10-26] MEDS: Folic Acid 1 MG Tablet PO (08:39)
[2019-10-26] MEDS: Aspirin 81 MG TAB.CHEW PO (08:39)
[2019-10-26] MEDS: Thiamine Hydrochloride 100 MG Tablet PO (08:39)
[2019-10-26 08:43] VITALS: BP 133/79; PULSE 64; RESP 14; TEMP 37.2; O2SAT 95
[2019-10-26 08:46] VITALS: BP 133/79; PULSE 64
[2019-10-26] MEDS: Metoprolol(XL)Succ 25 MG Tablet PO (08:46)
[2019-10-26] MEDS: hydroCHLOROthiazide 12.5mg 12.5 MG PO (08:46)
[2019-10-26] MEDS: Lisinopril 20 MG Tablet PO (08:48)
--- NOTE | 2019-10-26 09:48 | DCINST_ITS ---
- Discharge Diagnoses Current Active Problems: Current Active and Chronic Problems (Last Updated 10/25/19 @ 00:43 by Maxim Mahan MD) Syncope (Acute) You will use the following diet at home:: Cardiac, Other - no alcohol Your food should be the consistency of: Regular Your liquids should be the consistency of: Regular/Thin Discharge Activity: Return to Normal Activity Additional Instructions: Talk to your family medicine doctor about a 30 day cardiac event monitor. Allergies/Adverse Reactions: Allergies budesonide [From Symbicort] Adverse Reaction (Verified 10/24/19 23:49) Other formoterol [From Symbicort] Adverse Reaction (Verified 10/24/19 23:49) Other BEE STINGS Allergy (Unknown, Uncoded 10/19/14 13:37) Hives Medications to take at Discharge Aspirin [Aspirin, Baby] 81 mg PO DAILY@0800 10/19/14 Levothyroxine [Synthroid] 88 mcg PO DAILY 10/19/14 Lisinopril/Hydrochlorothiazide [Zestoretic 20/12.5 Tablet] 1 tablet PO DAILY 10/19/14 Metoprolol(XL)Succ [Toprol Xl (Beta Jairon)] 25 mg PO DAILY 10/19/14 Primary Care Physician: Danish Mason MD [Primary Care Provider] - Please follow up with your Primary Care Physician in: 1-2 weeks Test Results: Test results from this visit will be discussed in further detail at your follow- up appointment, if applicable. Please Follow Up With: Gastroenterology - your own When: 2 weeks Proposed Discharge Date: 10/26/19
--- NOTE | 2019-10-26 10:40 | PHA.DC.MR ---
Pharmacy Service has performed discharge medication reconciliation for this patient. No new medications at time of discharge review. Medications reviewed are from previously reported home medications. The patient's discharge medication list was reviewed for discrepancies and discrepancies were resolved. Home Medications Aspirin [Aspirin, Baby] 81 mg PO DAILY@0800 10/19/14 Levothyroxine [Synthroid] 88 mcg PO DAILY 10/19/14 Lisinopril/Hydrochlorothiazide [Zestoretic 20/12.5 Tablet] 1 tablet PO DAILY 10/19/14 Metoprolol(XL)Succ [Toprol Xl (Beta Jairon)] 25 mg PO DAILY 10/19/14
--- NOTE | 2019-10-26 12:27 | DS.PCM_ITS ---
<Berny Waters - Last Filed: 10/26/19 12:27> Discharge Date and Diagnosis Date of Admission: 10/24/19 Date of Discharge: 10/26/19 - Primary Discharge Diagnosis Syncope - unclear etiology Alcoholism Hx CAD, stents Hypothyroidism COPD HTN Hospital Course and Treatment Imaging Results: RAD/Chest 1 View (Portable) IMPRESSION: No acute cardiopulmonary findings 2D echo: Interpretation Summary The estimated ejection fraction is 65 %. Stage 1 diastolic dysfunction. Trivial mitral valve insufficiency. Trivial tricuspid valve insufficiency. Right ventricular systolic pressure estimated to be 18 mmHg. There is no comparison study available. The study was technically difficult. Contrast injection was performed. MRI/Brain W/WO Contrast IMPRESSION: No acute intracranial abnormality or masses. Carotid US Interpretation Summary Irregular calcific plaque at the proximal right internal carotid with less than 50% stenosis <50% stenosis right external carotid Irregular calcific plaque with shadowing at the proximal left internal carotid with 50 to 69% stenosis <50% stenosis left external carotid Patent, antegrade, <50% stenosis bilateral vertebrals Consults: Teleneuro Operations: None Procedures: 2-D Echocardiogram, Electroencephalogram Summary of Care Provided: Hospital Course: The patient is a 69 year old M with pmhx of CAD, alcoholism, HTN, who presented to the ER with c/o syncope. He was at a bar, stated he had one beer, and as he started to take a drink he started shaking and fell unconscious. He was caught by a friend. He reportedly had further twitching. He was brought to the ER and had unremarkable vitals and labs. He was admitted for syncope. Tele neuro was consulted. EEG and MRI were obtained and were negative. He had no events on tele. He had an unremarkable echo. TSH was normal, troponin normal, prolactin normal. He had no further symptoms. He was discharged home in stable condition. He was advised to follow up with his PCP in 1-2 weeks. The patient thought he may be dehydrated from chronic diarrhea for which he sees gastroenterology in [place] - I advised him to follow up with them as well in 2 weeks. This patient was seen by Berny Waters PA-C under the supervision of Dr. Cueva. [] - Physical Exam Vitals/I&O's: Vital Signs Temp Pulse Resp BP Pulse Ox 99 F 64 14 133/79 H 95 10/26/19 08:43 10/26/19 08:46 10/26/19 08:43 10/26/19 08:46 10/26/19 08:43 Oxygen Delivery Method Room Air Weight: 160 lb 14.999 oz Body Mass Index (BMI) 23.8 Finger Stick Blood Glucose 146 Orthostatic Vital Signs Start: 10/25/19 00:22 Freq: q24h Status: Active Protocol: Activity Type Activity Date Activity User E-Sign Co-Sign Detail Recorded Client Recorded Date Recorded By Document 10/26/19 06:33 CM [id number] 10/26/19 06:36 CM 10/26/19 06:33 Orthostatic Vitals Standing -Blood Pressure (90/60-120/80) 128/80 H -Extremity Use Left Arm -Pulse Rate (60-100) 63 Sitting -Blood Pressure (90/60-120/80) 132/82 H -Extremity Use Left Arm -Pulse Rate (60-100) 71 Lying -Blood Pressure (90/60-120/80) 127/78 H -Extremity Use Left Arm -Pulse Rate (60-100) 56 L Intake and Output for Last 24 Hours 10/24/19 10/25/19 10/26/19 23:59 23:59 23:59 Intake Total 567.5 / 567.5 3294.99 / 3294.99 0 / 0 Balance 567.5 / 567.5 3294.99 / 3294.99 0 / 0 General: Alert, Oriented x3, Cooperative HEENT: Atraumatic, PERRLA, EOMI, Normocephalic Neck: Supple, No JVD, Negative Carotid Bruits Lungs: Clear to auscultation, Normal air movement Cardiovascular: Regular rate, No murmurs Abdomen: Bowel Sounds Present, Soft, Non Tender Extremities: No edema, Capillary Refill Less than 3 Seconds Skin: No rashes, No breakdown Musculoskeletal: No Tenderness to Palpation of Joints or Extremities Neurological: Cranial nerves II-XII grossly intact Psych/Mental Status: Normal Affect, Appropriate, Alert and oriented to time, place, person, mood and affect Laboratory Results 10/25/19 02:40: Magnesium 2.2, TSH 1.80 Discharge Diet: Low fat/ Low Cholesterol, 2000 mg Sodium Diet Discharge Activity: Return to Normal Activity Home Medications: Medications to take at Discharge Aspirin [Aspirin, Baby] 81 mg PO DAILY@0800 10/19/14 Levothyroxine [Synthroid] 88 mcg PO DAILY 10/19/14 Lisinopril/Hydrochlorothiazide [Zestoretic 20/12.5 Tablet] 1 tablet PO DAILY 10/19/14 Metoprolol(XL)Succ [Toprol Xl (Beta Jarion)] 25 mg PO DAILY 10/19/14 Primary Care Physician: Danish Mason MD [Primary Care Provider] - Please follow up with your Primary Care Physician in: 1-2 weeks Please Follow Up With: Gastroenterology - your own When: 2 weeks Disposition: Home Minutes spent on discharge:: 35 Patient Condition:: Stable Medical Necessity - Tobacco Use Smoking Status: Current every day smoker Tobacco Use: Cigarettes Meaningful Use Info Meaningful Use Diagnoses (Choose all that apply): None applicable <Cherelle Cueva E - Last Filed: 10/26/19 13:15> Hospital Course and Treatment Procedures: 2-D Echocardiogram, Electroencephalogram, EKG Summary of Care Provided: Hospitalist note: Discharge summary above reviewed and I concur with the above discharge and treatment plan. Patient was admitted for syncopal episode for evaluation. There was no clear etiology identified or diagnosed. Although patient complained of diarrhea over the last several days before admission, his kidney f unction was normal and his orthostatic vitals were normal as well. Because he had a history of cardiac arrest 4 years ago without obvious etiology, work-up performed and was unremarkable. The history was vague and we were not able to determine if this syncopal episode due to cardiogenic or neurogenic etiology. His EKG revealed normal sinus rhythm without evidence of acute ischemic changes. His orthostatic vitals were unremarkable. His troponin was negative. Chest x- ray showed no acute findings. MRI brain showed no acute infarct or hemorrhage. EEG performed and was normal awake EEG without evidence of epileptiform waves. 2D echocardiogram revealed ejection fraction of 65%, stage I diastolic dysfunction, RVSP of 18 and without significant valvular heart disease. Carotid Doppler performed and revealed less than 50% stenosis of the right internal and external carotid artery, 50 to 69% stenosis of the left internal carotid artery and less than 50% stenosis of the left external carotid artery. Again, there was no clear etiology identified although dehydration could be the reason for it but again, patient's kidney function was normal and his orthostatic vitals were unremarkable. Patient discharged home in a stable medical condition, started back on his previous home medications without any changes, recommended follow-up with PCP in 1 to 2 weeks. - Physical Exam General: Alert, Oriented x3, Cooperative, No apparent distress. HEENT: Atraumatic, PERRLA, EOMI. Neck: Supple, No JVD, Negative Carotid Bruits, Trachea Midline, Thyroid Normal. Lungs: Clear to auscultation, Normal air movement, No rhonchi, No wheeze, No rales. Cardiovascular: Regular rate, Regular Rhythm, Normal S1, Normal S2, PMI Normal. Abdomen: Bowel Sounds Present, Soft, Non Tender, Non-Distended, No Hepato- splenomegaly. Extremities: No clubbing, No cyanosis, No edema Skin: No rashes, No breakdown Neurological: Cranial nerves are intact, neuro grossly intact Vital Signs are stable. This note was generated with Zapper dictation software. It may contain incorrect words, spelling, and punctuation that were not noted in checking the note before signing. - Physical Exam Vitals/I&O's: Vital Signs Temp Pulse Resp BP Pulse Ox 99 F 64 14 133/79 H 95 10/26/19 08:43 10/26/19 08:46 10/26/19 08:43 10/26/19 08:46 10/26/19 08:43 Oxygen Delivery Method Room Air Weight: 160 lb 14.999 oz Body Mass Index (BMI) 23.8 Finger Stick Blood Glucose 146 Orthostatic Vital Signs Start: 10/25/19 00:22 Freq: q24h Status: Active Protocol: Activity Type Activity Date Activity User E-Sign Co-Sign Detail Recorded Client Recorded Date Recorded By Document 10/26/19 06:33 CM [id number] 10/26/19 06:36 CM 10/26/19 06:33 Orthostatic Vitals Standing -Blood Pressure (90/60-120/80) 128/80 H -Extremity Use Left Arm -Pulse Rate (60-100) 63 Sitting -Blood Pressure (90/60-120/80) 132/82 H -Extremity Use Left Arm -Pulse Rate (60-100) 71 Lying -Blood Pressure (90/60-120/80) 127/78 H -Extremity Use Left Arm -Pulse Rate (60-100) 56 L Intake and Output for Last 24 Hours 10/24/19 10/25/19 10/26/19 23:59 23:59 23:59 Intake Total 567.5 / 567.5 3294.99 / 3294.99 0 / 0 Balance 567.5 / 567.5 3294.99 / 3294.99 0 / 0 Laboratory Results 10/25/19 02:40: Magnesium 2.2, TSH 1.80 Disposition: Home Minutes spent on discharge:: 28 Patient Condition:: Stable Meaningful Use Info Meaningful Use Diagnoses (Choose all that apply): None applicable Code Visit OBSV E&M: 56718 Observation care discharge
[2020-03-13 10:41] VITALS: BMI 23.8
== END 2019-10-26 09:49 | disposition home or self-care (01) ==
LOC: ED 20:35 → PCU 22:56
PROVIDERS: Nurse Practitioner Family; Admitting Provider Hospitalist; Emergency Provider Emergency Medicine; Visit Provider Hospitalist
DX: R55 Syncope and collapse (principal); I25.10 Atherosclerotic heart disease of native coronary artery without angina pectoris; E03.9 Hypothyroidism, unspecified; J44.9 Chronic obstructive pulmonary disease, unspecified; F10.20 Alcohol dependence, uncomplicated; I10 Essential (primary) hypertension; I08.1 Rheumatic disorders of both mitral and tricuspid valves; F17.210 Nicotine dependence, cigarettes, uncomplicated; Z79.899 Other long term (current) drug therapy; Z79.82 Long term (current) use of aspirin; Z86.74 Personal history of sudden cardiac arrest; I65.23 Occlusion and stenosis of bilateral carotid arteries
CPT/HCPCS: 36415; 70553; 71045; 80048; 80320; 82962; 83735; 84146; 84443; 84484; 85025; 93005; 93306; 93880; 95819; 96360; 96361; 96372; 97161; 97165; 97802; 99218; 99285; 99406; A9575; J7030; Q9957; A4216; C8929; G0378; G0480

== ENCOUNTER → 2020-04-03 09:13 | Outpatient (CLI) | payer MEDICARE, SELFPAY ==
[2020-03-13 10:41] VITALS: BMI 23.8
--- NOTE | 2020-04-03 09:20 | RAD_ITS ---
STUDY: X-RAY - RIGHT HAND, ATTENTION FOURTH FINGER REASON FOR EXAM: Male, 69 years old. Painful, subungual mass right ring finger TECHNIQUE: 3 view(s) of the finger were obtained. COMPARISON: None. FINDINGS: Abnormal appearance of the distal phalanx of the fourth digit where there is a osteolytic destructive process of the tuft of the digit which can be seen with infection. Marked soft tissue swelling of the tip of the finger. No gross fractures or dislocations. No gross soft tissue air. Normal metacarpal head. Normal metacarpophalangeal joint. Normal proximal phalanx. Normal middle phalanx. Normal proximal interphalangeal joint. Normal distal interphalangeal joint. RAD/Finger(s) Min 2 Views IMPRESSION: Osteolytic destructive process of the tuft of the distal phalanx of the fourth digit most likely representing an infectious process. Electronically Signed: Kevin Sanchez MD at 17:02 EDT , Service support ,
== END ==
PROVIDERS: Referring Provider Surgery; Visit Provider Surgery
DX: R22.31 Localized swelling, mass and lump, right upper limb (principal)
CPT/HCPCS: 73140

== ENCOUNTER 2020-04-09 07:01 | Day surgery (SDC) | payer MEDICARE, SELFPAY ==
[2020-03-13 10:41] VITALS: BMI 23.8
--- NOTE | 2020-04-08 17:23 | PCM.HP.BLA ---
History and Physical Date of Admission: 04/09/20 HISTORY OF PRESENT ILLNESS 69 year old male presents for evaluation of a painful lesion under the nail of his right ring finger. The lesion is located on the radial aspect of the nail. Patient went to have it evaluated at [facility], but they had difficulty numbing the finger, therefore they stopped the procedure and referred him to us. Patient denies any trauma to the finger. Patient is right hand dominant. He had an x-ray on 04/03/20 which showed osteolytic destructive process of the tuft of the distal phalanx of the fourth digit most likely representing an infectious process. PAST MEDICAL HISTORY Heart disease Hypothyroidism Vascular disease Hypertension PAST SURGICAL HISTORY None ALLERGIES budesonide [From Symbicort] formoterol [From Symbicort] BEE STINGS MEDICATIONS Aspirin [Aspirin, Baby] Levothyroxine [Synthroid] Lisinopril/Hydrochlorothiazide [Zestoretic 20/12.5 Tablet] bisoprolol fumarate citalopram dicyclomine loperamide multivitamin tamsulosin FAMILY HISTORY Other - Anxiety, Heart disease SOCIAL HISTORY Smoking Status: Current every day smoker counseling given: provider counseling, counseling >10 minutes alcohol intake: current substance use type: does not use REVIEW OF SYSTEMS General - Denies fever, fatigue, and weight loss. Eyes - Denies cataracts and glaucoma. ENT - Denies nasal congestion and sore throat. Endocrine - Denies excessive thirst and urination. Skin - Denies history of skin cancer. He has a lesion on the radial aspect of his right ring finger under the nail. He states the lesion is painful. He has had it several months. He denies any trauma to the nail/finger. Patient is right hand dominant. Musculoskeletal - Denies joint pain, joint stiffness, weakness of muscles and joints, back pain, and arthritis. Neuro - Denies headaches. Cardiovascular - Denies chest pain, fatigue, and shortness of breath with exertion. He has a history of heart and vascular disease. He is currently a daily smoker that he is down to 1/2 ppd. Psych - Denies anxiety and depression. Respiratory - Denies chronic cough and shortness of breath. Gastrointestinal - Denies nausea, vomiting, diarrhea, and constipation. Hematologic - Denies abnormal bruising and bleeding. Genitourinary - Denies hematuria and urinary frequency. PHYSICAL EXAMINATION General - Alert and oriented. HEENT - PERRL. EOMI. Throat is clear. Neck - Supple and non-tender. No cervical adenopathy. Lungs- Clear to auscultation. Heart - Regular rate and rhythm. Abdomen - Soft and non distended. Extremities - FROM. No axillary adenopathy. Radial pulses are palpable. Patient is right hand dominant. On the right ring finger on the radial aspect of the nail is a 1 cm lesion that is tender to palpation. The part of the lesion that is exposed looks verrucous in nature. Fingers are warm with good capillary refill. No sensory deficits. Neuro - CN II-XII grossly intact. Psych - Normal mood and affect. ASSESSMENT 1. 1 cm painful subungual lesion right ring finger on radial aspect. 2. Smoker. PLAN Recommend excision of this painful subungual lesion right ring finger and send it to Pathology for analysis to rule out carcinoma. Depending on how much of the nail bed is involved with the lesion will determine the size of the nail bed defect. A possible nail bed graft from his big toe may be needed. If the nail bed is not involved but there is a wound on the finger tip at the level of the hyponychium, then a V-Y Atasoy advancement flap may be needed. If the nail bed graft is not successful, then a cross finger flap may be needed to maintain length with skin grafting of the donor site. Surgery will be done under local anesthesia and IV sedation on an outpatient basis and digital tourniquet control. Finger x-ray on 04/03/20 showed osteolytic destructive process of the tuft of the distal phalanx of the fourth digit most likely representing an infectious process. Patient was informed of the risks and complications of the procedure including alternatives to surgery. These were discussed with the patient personally. Patient voices understanding and wishes to proceed. Some of the risks and complications were included in a form from the [employer]. Encouraged patient to stop smoking as it may have deleterious effects on wound healing. We discussed the current risks associated with COVID-19. While it is understood that there is a community spread of COVID-19, the risk of lionel COVID-19 while at [facility] ([facility]) is very low; however, the risk cannot be completely mitigated because of the community spread of the disease. We discussed in detail the risk of exposure to and/or potential harm posed by the COVID-19 virus with having a surgery/procedure at this time versus the risk of delaying the surgery/procedure. It is not possible to know either the risk of delaying the surgery or procedure or chance of getting an infection with perfect accuracy, but a joint decision was made to proceed at this time with the scheduled surgery/procedure as indicated on the consent form. Patient was notified that we will need to comply with any screening or testing WC wishes to perform or that surgery may be delayed for any positive results. Discussed with the patient that I was tested for COVID-19 on 04/04/20. My test was negative. My testing regimen at this time is to be COVID-19 tested every 2 weeks or so. Procedure Criteria Procedure Type: Elective COVID Risk Discussion: The surgeon/proceduralist and patient have discussed in detail the risk of exposure to and/or potential harm posed by the COVID-19 virus with having a surgery/procedure at this time versus the risk of delaying the surgery/procedure. It is not possible to know either the risk of delaying the surgery or procedure or chance of getting an infection with perfect accuracy, but a joint decision was made between the patient and the surgeon/proceduralist to proceed at this time with the scheduled surgery/procedure as indicated on the consent form.
[2020-04-09] VITALS (16 sets, daily range): BP systolic 88–149; BP diastolic 55–90; PULSE 43–60; RESP 16–18; TEMP 36–36.4; O2SAT 91–100; BMI 23.3
--- NOTE | 2020-04-09 | LES_PTH ---
PATIENT: Jhonathan ROSAS LOC: [facility] [place] U#:[id number] AGE/SX: 69/M ROOM: RE04/09/[address]: Dr. Charles Raza MD : 1950 BED: DIS: 04/09/2020 SPEC #: [id number] RECD: 04/09/20 09:20 STATUS: RONEY ALPA #: [id number] CLAUDIA: 04/09/20 00:[address]: Charles Raza DEPT: SURGICAL PATHOLOGY RECD BY: Nay Lovell ENTERED: 04/09/20 09:56 SP TYPE: Lesion OTHR DR: Dr. Danish Mason MD Tissues: A - Skin of finger, NOS B - Bone of hand, NOS Procedures: Decalcification bone/plaque Frozen Section (charge) Frozen Section Add'l ([facility]) Surgery Specimen Level IV HEADER OPERATION: Excision painful subungual lesion right ring finger nailbed PRE-OP DIAGNOSIS: 1 cm painful subungual lesion right ring finger on radial aspect TISSUE SUBMITTED: A - 1 cm painful subungual lesion right ring finger on radial aspect, B - Distal phalanx bone right ring finger FROZEN SECTION DIAGNOSIS A. Right subungual lesion, biopsy: Cutaneous horn. No evidence of carcinoma. AM:eliz 04/09/20 MICROSCOPIC DIAGNOSIS A. Right subungual lesion, biopsy: Consistent with verrucoid keratosis with associated cutaneous horn, inflamed. Pseudoepitheliomatous hyperplasia. B. Bone and tissue, distal phalanx, right finger, biopsy: Reactive and reparative change. No evidence of malignancy. AM:eliz 04/15/20 COMMENT Case has been reviewed in consultation with Dr. Nelson who concurs with the above diagnosis. IDC:SJ MICROSCOPIC DESCRIPTION Slides are reviewed. GROSS DESCRIPTION A - Received fresh for frozen section consultation labeled with the patient's name is a specimen designated subungual lesion, right finger. The specimen consists of two irregular fragments of pink-goyal soft tissue. The larger fragment measures 1 x 0.5 x 0.2 cm and the smaller fragment measures 0.7 x 0.5 x 0.3 cm. The specimen is submitted in its entirety for frozen section consultation in one block. / AM:eliz 04/09/20 B - Received in fixative is one container labeled with the patient's name and designated distal phalanx bone right ring finger. The specimen consists of multiple fragments of bone that in aggregate measure 1 x 0.7 x 0.2 cm. The specimen is totally submitted in one cassette after decalcification. / SJ:eliz 04/10/20 TC:5 CPT: 42033 x2, [id number], [id number], [id number]
--- NOTE | 2020-04-09 07:59 | EKG12_ITS ---
Test Reason : POST OP Blood Pressure : / mmHG Vent. Rate : 055 BPM Atrial Rate : 055 BPM P-R Int : 176 ms QRS Dur : 088 ms QT Int : 444 ms P-R-T Axes : 071 -55 059 degrees QTc Int : 424 ms Sinus bradycardia Left anterior fascicular block Abnormal ECG Confirmed by BING LOPEZ, SARA ([id number]), film editor supervisor NENA DIAS ([id number]) on 04/10/2020 10:23:37 AM Referred By: Charles Raza Confirmed By:SARA SMART MD
--- NOTE | 2020-04-09 08:11 | EKG12_ITS ---
Test Reason : PRE OP Blood Pressure : / mmHG Vent. Rate : 058 BPM Atrial Rate : 058 BPM P-R Int : 168 ms QRS Dur : 092 ms QT Int : 424 ms P-R-T Axes : 000 -42 060 degrees QTc Int : 416 ms Sinus bradycardia Left axis deviation Possible LAFB Abnormal ECG Confirmed by BING LOPEZ, SARA ([id number]), book or script editor RODOLFO AHUMADA ([id number] on 04/11/2020 4:27:48 PM Referred By: Charles Raza Confirmed By:SARA SMART MD
[2020-04-09] MEDS: Lactated Ringers 1,000 ML 100 ML IV (08:22)
[2020-04-09] MEDS: Cefazolin 2 GM in 0.9% Normal Saline 100 ML IV (08:40)
[2020-04-09] MEDS: Mupirocin Ointment 22gm Tube 1 APPLIC (10:10)
--- NOTE | 2020-04-09 10:17 | PCM.OPRPT ---
Report of Operation Date of Procedure: 04/09/20 Pre-Operative Diagnosis: 1. 1 cm painful subungual lesion right ring finger on radial aspect. 2. Smoker. Post-Operative Diagnosis: 1. 1 cm painful subungual lesion right ring finger on radial aspect involving underlying nail bed and distal phalanx tuft. 2. 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 3. Smoker. Surgery/Procedure Performed:: 1. Excision 1 cm subungual lesion right ring finger involving nail bed. 2. Repair nail bed defect with central advancement of lateral nail bed. 3. Partial ostectomy distal phalanx tuft for osteomyelitis. Description of Surgical Findings:: 69 year old male presents for evaluation of a painful lesion under the nail of his right ring finger. The lesion is located on the radial aspect of the nail. Patient went to have it evaluated at [facility], but they had difficulty numbing the finger, therefore they stopped the procedure and referred him to us. Patient denies any trauma to the finger. Patient is right hand dominant. He had an x-ray on 04/03/20 which showed osteolytic destructive process of the tuft of the distal phalanx of the fourth digit most likely representing an infectious process. Patient was informed of the risks and complications of the procedure including alternatives to surgery. These were discussed with the patient personally. Patient voices understanding and wishes to proceed. Some of the risks and complications were included in a form from the [employer] [place]. Some of the risks and complications that were discussed included but were not inclusive of failure to diagnose including symptom relief, pain, infection, numbness, stiffness, loss of digit, RSD (CRPS), need for further surgery, contracture, and wound healing problems. Encouraged patient to stop smoking as it may have deleterious effects on wound healing. Frozen section subungual lesion right ring finger - No carcinoma seen. Total tourniquet time - 59 minutes. industrial editor: None Type of Anesthesia:: Local MAC - xylocaine with epinephrine digital metacarpal block and IV sedation. Specimen's removed: 1. Subungual lesion right ring finger to Pathology as a frozen section. 2. Subungual lesion right ring finger to Microbiology. 3. Distal phalanx bone right ring finger to Pathology and Microbiology. Drains: None. Estimated Blood Loss (mL): 2 ml. Description of Procedure: Patient was taken to OR in supine position and was given IV sedation. The right hand was prepped and draped in the usual fashion. SCD's were placed for DVT prophylaxis. Perioperative antibiotics were given intravenously. A digital metacarpal block to right ring finger was done with xylocaine and epinephrine. After waiting 5 minutes for the anesthetic to take effect, a digital tourniquet was placed on the base of the right ring finger. I performed the surgery wearing an N95 mask and proper eye protection. The nail plate was removed off the nail bed and placed on the back table. A large mass was seen involving the nail bed that was excised. The mass was sent to Pathology as a frozen section for analysis to rule out carcinoma. The frozen section revealed no evidence of carcinoma. So no additional margin was necessary at this time. A small portion of the mass was also sent to Microbiology for culture as the central aspect of the mass was not solid in nature. A positive culture will necessitate antibiotic therapy. The mass extended to the distal phalanx. There was a cavitary area in the distal phalanx. A partial ostectomy of the distal phalanx tuft was then done to rule out osteomyelitis. A rasp was used to smooth out the bony edges. Half the bone was sent to Pathology for analysis to rule out osteomyelitis and half the bone was sent to Microbiology for culture. A positive culture will necessitate antibiotic therapy. There was a central defect in the nail bed. I freed up the nail bed laterally and advanced the remaining nail bed centrally and closed the nail bed defect with 6-0 Chromic simple interrupted sutures. This covered the underlying remaining distal phalanx. The overall size of the nail bed is smaller than it was preoperatively but it is continuous to allow nail plate growth. With an attempt to try and preserve the nail complex, the remaining distal nail bed defect was closed by advancing the volar skin flap proximally. The skin edges were approximated to the edges of the remaining nail bed with 5-0 Monocryl vertical mattress interrupted sutures. The nail plate was then trimmed to allow it to fit over the remaining nail bed and secured as a biologic splint with 5-0 Nylon simple interrupted sutures. As a new nail grows from the proximal growth center distally, this existing nail plate will be removed. The tourniquet was released after 59 minutes. Hemostasis was obtained with gentle pressure and gauze compression. Antibiotic ointment was applied to the sutures and the nail plate. This was followed with Xeroform gauze and 2x2 gauze and 2 inch Ines compression wrap. Patient tolerated the procedure well and was sent to PACU in satisfactory condition. Patient will be sent home on antibiotics and pain medication. Patient will followup in a week for a wound check and for discussion of the pathology report and for discussion of the microbiology report. A positive culture will necessitate antibiotic therapy. The Nylon sutures securing the existing nail plate will be removed in 2 weeks. Grafts/Implants Used: None. - Complications None. - Admit VTE Documentation VTE Present on Admission: No VTE Mechan Device Prophylaxis: SCD's VTE Pharm Prophylaxis ordered?: No Surgery Charges CPT - 94010 ICD-10 - R22.31, M86.9, F17.200 87712 M86.9, R22.31, F17.200 81572 R22.31, M86.9, F17.200
--- NOTE | 2020-04-09 10:30 | PCM.DC ---
You will use the following diet at home:: No restrictions Discharge Activity: May not drive while taking narcotic pain medications., May Shower - place plastic bag over right hand when showering., - - elevate right hand. no heavy lifting. May shower in (days): 1 - place plastic bag over right hand when showering. May resume sexual activity in: No Restrictions Weight Bearing Status: Weight bearing as tolerated Lifting Restrictions: 20 lbs. Keep extremity elevated above heart level: Right Arm Call your doctor if your incision/area has: Continuous Slow Oozing, Sudden Increased Bleeding, Increased Pain/ Swelling, Increased Redness, Foul Smelling Discharge, Swelling at the incision site Call your doctor if you observe: Fever of 101 or Higher, Coldness, Increased Pain, Shortness of breath, Chest pain, Calf discomfort, Uncontrolled pain Change Dressing in (Days):: 7 - will change dressing in office. Cleanse incision/area with: - - wear plastic bag over right hand when showering. Allergies/Adverse Reactions: Allergies budesonide [From Symbicort] Adverse Reaction (Verified 04/02/20 09:10) Other formoterol [From Symbicort] Adverse Reaction (Verified 04/02/20 09:10) Other BEE STINGS Allergy (Unknown, Uncoded 04/02/20 09:10) Hives Medications to take at Discharge Aspirin [Aspirin, Baby] 81 mg PO DAILY@0800 10/19/14 Levothyroxine [Synthroid] 88 mcg PO DAILY 10/19/14 Lisinopril/Hydrochlorothiazide [Zestoretic 20/12.5 Tablet] 1 tab PO DAILY 10/19/14 bisoprolol fumarate 5 mg tablet 5 mg PO DAILY 03/13/20 citalopram 20 mg tablet 20 mg PO DAILY 03/13/20 dicyclomine 10 mg capsule 10 mg PO BID 03/13/20 loperamide 2 mg tablet 2 mg PO Q6H PRN 03/13/20 multivitamin 1 tab PO DAILY 03/13/20 tamsulosin 0.4 mg capsule 0.4 mg PO DAILY 03/13/20 Levetiracetam [Keppra] 500 mg PO DAILY 04/02/20 Doxycycline [Vibramycin] 100 mg PO BID #28 cap 04/09/20 Lactobacillus Acidophilus/Fos [Acidophilus Probiotic Tablet] 1 ea PO BID #30 tab 04/09/20 Oxycodone HCl/Acetaminophen [Percocet 5/325] 1 tablet PO Q6H PRN PRN 7 Days #28 tablet 04/09/20 The following prescriptions were given: Lactobacillus Acidophilus/Fos [Acidophilus Probiotic Tablet] 1 ea PO BID #30 tab Transmission Status: Pending to [facility] Oxycodone HCl/Acetaminophen [Percocet 5/325] 1 tablet PO Q6H PRN PRN 7 Days #28 tablet PRN Reason: Pain Score 4-5/10 Transmission Status: Sent to [facility] Doxycycline [Vibramycin] 100 mg PO BID #28 cap Transmission Status: Pending to [facility] Primary Care Physician: Danish Mason MD [Primary Care Provider] - Test Results: Test results from this visit will be discussed in further detail at your follow-up appointment, if applicable. Please Follow Up With: Charles Raza MD When: one week. call [phone] for appt. Proposed Discharge Date: 04/09/20
[2020-04-09] MEDS: Acetaminophen 325 MG Tablet PO (13:58)
[2020-04-09] MEDS: oxyCODONE 5 MG Tablet PO (14:03)
== END 2020-04-09 15:31 | disposition home or self-care (01) ==
LOC: SDC 07:02 → AC 07:03
PROVIDERS: Anesthesiology; Referring Provider Surgery; Visit Provider Surgery
PROC: (CPT 11750; principal; 2020-04-09 08:25)
DX: L85.8 Other specified epidermal thickening (principal); M86.641 Other chronic osteomyelitis, right hand; E03.9 Hypothyroidism, unspecified; I10 Essential (primary) hypertension; F17.200 Nicotine dependence, unspecified, uncomplicated; Z11.59 Encounter for screening for other viral diseases; R22.31 Localized swelling, mass and lump, right upper limb; F41.9 Anxiety disorder, unspecified; R00.1 Bradycardia, unspecified; R94.31 Abnormal electrocardiogram [ECG] [EKG]; I44.4 Left anterior fascicular block; I25.2 Old myocardial infarction; I25.10 Atherosclerotic heart disease of native coronary artery without angina pectoris; Z95.5 Presence of coronary angioplasty implant and graft; G25.81 Restless legs syndrome; F32.9 Major depressive disorder, single episode, unspecified; Z79.899 Other long term (current) drug therapy; Z79.82 Long term (current) use of aspirin
CPT/HCPCS: 01830; 11750; 11760; 26236; 36415; 84484; 87015; 87070; 87075; 87077; 87102; 87116; 87186; 87205; 87206; 87635; 88304; 88305; 88311; 88331; 88332; 93005; G2023; J7120; J2405; U0003

== ENCOUNTER → 2022-10-27 | Outpatient (CLI) | payer MEDICARE, SELFPAY | END | disposition home or self-care (01) | LOC: LAB 15:16 | PROVIDERS: Visit Provider Registered Nurse | DX: Z12.5 Encounter for screening for malignant neoplasm of prostate (principal) | CPT/HCPCS: 36415; 84153; G0103 ==